=== PATIENT | male | born 1970 | race Caucasian/White ===

== ENCOUNTER 2020-01-13 07:36 | Outpatient (CLI) | payer MEDICARE ==
--- NOTE | 2020-01-13 09:50 | MRI ---
MRI LUMBAR SPINE WITHOUT CONTRAST: Date: 01/13/2020 INDICATION: Low back pain. Right leg pain. FINDINGS: Lumbar vertebra maintain normal height and alignment. Vertebral body signal is normally preserved. Di sc spaces are maintained. Mild degenerative changes. There are end plate deformities seen involving s uperior and inferior end plates at the L1-2 disc level. These are consistent with small Schmorl's nod es. T12-L1: No significant disc abnormality. No central canal or foraminal stenosis. L1-2: No significant disc bulge or protrusion. Mild facet hypertrophy. No significant central canal or foraminal stenosis. L2-3: There is a broad based disc bulge flattening the thecal sac. Moderate facet arthrosis and hype rtrophy. Posterior epidural fat is prominent. These changes compress the thecal sac resulting in mild to moderate central canal stenosis. No significant foraminal stenosis. L3-4: There is annular fissure with small protrusion paracentrally to the right associated with diff use disc bulge. This compresses the thecal sac, more severely on the right, with displacement of the traversing right L4 nerve root. There is facet and ligamentous hypertrophy with facet arthrosis. Post erior epidural fat. Moderate central canal stenosis as a result of these changes. L4-5: Broad based disc bulge flattens the thecal sac. Facet and ligamentous hypertrophy with posteri or epidural fat results in mild to moderate central canal stenosis. L5-S1: Mild disc bulge. Thecal sac is congenitally smaller. Facet hypertrophy is present; however, n o significant central canal stenosis. There is bilateral foraminal stenosis primarily due to the face t hypertrophy. 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 The central canal stenosis is most severe at the L3-4 level where this an asymmetric prot rusion to the right as described above. POS: [facility]
== END 2020-01-13 07:37 | disposition home or self-care (01) ==
LOC: BICMRI 07:36
PROVIDERS: ATTEND Psychiatry & Neurology Neurology
DX: M79.604 Pain in right leg (principal); M48.061 Spinal stenosis, lumbar region without neurogenic claudication; M51.26 Other intervertebral disc displacement, lumbar region; M51.86 Other intervertebral disc disorders, lumbar region; M51.87 Other intervertebral disc disorders, lumbosacral region
CPT/HCPCS: 72148